=== PATIENT | female | born 1990 | race African-American/Black ===

== ENCOUNTER 2017-03-25 15:46 | Emergency (ER) | payer OTHER ==
[2017-03-25 16:00] VITALS: TEMP 97.5
[2017-03-25] MEDS ORDERED: HYOSCYAMINE SULFATE 0.125 MG TAB ONE (16:13)
[2017-03-25] MEDS ORDERED: LIDOCAINE 2% VISCOUS 15 ML UDCUP ONE (16:14)
[2017-03-25] MEDS ORDERED: MAG HYDROX/AL HYDROX/SIMETH 30 ML UDCUP ONE (16:14)
--- NOTE | 2017-03-25 16:14 | EDPHY ---
H & P Stated Complaint: n/v chills/?fever abd pain body aches Time Seen by Provider: 03/25/17 16:13 HPI/ROS: CHIEF COMPLAINT: Nausea, intractable vomiting, abdominal pain HISTORY OF PRESENT ILLNESS: The patient presents to the ED with complaints of several days of nausea, vomiting and intractable abdominal pain. The patient reports she has a history of chronic intermittent abdominal pain and vomiting. She saw a under presser in November of this year who reportedly diagnosed her with peptic ulcer disease. She was treated with antibiotics for a week and had been on a proton pump inhibitor which she stop taking. The patient does report she is a chronic daily marijuana user. She denies significant drug or cigarette use. The patient has no history of abdominal surgery. The patient complains of moderate epigastric pain. She denies additional acute complaints. REVIEW OF SYSTEMS: A comprehensive 10 point review of systems is otherwise negative aside from elements mentioned in the history of present illness. Source: Patient - Personal History LMP (Females 10-55): 1-7 Days Ago Current Tetanus/Diphtheria Vaccine: Yes - Medical/Surgical History Hx Asthma: No Hx Chronic Respiratory Disease: No Hx Diabetes: No Hx Cardiac Disease: No Hx Renal Disease: No Hx Cirrhosis: No Hx Alcoholism: No Hx HIV/AIDS: No Hx Splenectomy or Spleen Trauma: No Other PMH: ulcer/depression - Social History Smoking Status: Never smoked Alcohol Use: Occasionally Drug Use: Marijuana - Physical Exam Exam: General Appearance: Alert, mild discomfort secondary to ongoing retching Eyes: Pupils equal and round no pallor or injection ENT, Mouth: Mucous membranes moist Respiratory: There are no retractions, lungs are clear to auscultation Cardiovascular: Regular rate and rhythm Gastrointestinal: Epigastric tenderness to palpation Neurological: A&O, normal motor function, normal sensory exam, normal cranial nerves Skin: Warm and dry, no rashes Musculoskeletal: Neck is supple nontender Extremities: symmetrical, full range of motion Constitutional: Initial Vital Signs Temperature (C) 36.4 C 03/25/17 15:57 Heart Rate 84 03/25/17 15:57 Respiratory Rate 20 03/25/17 15:57 Blood Pressure 138/115 H 03/25/17 15:57 O2 Sat (%) 96 03/25/17 15:57 O2 Delivery Mode Room Air Allergies/Adverse Reactions: amoxicillin Allergy (Verified 03/25/17 15:56) Home Medications: Medication Instructions Recorded NK [No Known Home Meds] 03/25/17 Medical Decision Making ED Course/Re-evaluation: The patient presents to the ED for evaluation of an acute episode of epigastric pain which has occurred intermittently since November. The patient did have endoscopy which reportedly demonstrated peptic ulcer disease. She has not had any history of melena. She presents the ED today complaining of moderate epigastric pain and bilious vomiting. The patient had an IV established. She received a L of normal saline. She received IV Zofran and a GI cocktail. The patient does report that she has a chronic daily marijuana user and there may certainly be a component of can avoid induced hyperemesis in her presentation today. The patient did received 2.5 mg of IV Haldol and 1 mg of IV Ativan. I re-evaluated the patient several times throughout her stay in the emergency department. At 7:30 p.m. she is feeling much better. She has mild epigastric pain but no right lower quadrant tenderness. I do feel the patient can be discharged home. She will be advised to use Zofran, ranitidine and abstain from marijuana use. She has been given customary aftercare instructions and return precautions. She is given the contact number of our on-call under presser. Differential Diagnosis: Differential diagnosis considered includes peptic ulcer disease, pancreatitis, gastritis, cholecystitis, cannabis induced hyperemesis - Data Points Laboratory Results: Laboratory Results 03/25/17 16:40 03/25/17 16:40 03/25/17 03/25/17 03/25/17 16:40 16:40 16:40 WBC 10.81 10^3/uL H 10^3/uL (3.80-9.50) RBC 5.08 10^6/uL 10^6/uL (4.18-5.33) Hgb 15.1 g/dL g/dL (12.6-16.3) Hct 43.1 % % (38.0-47.0) MCV 84.8 fL fL (81.5-99.8) MCH 29.7 pg pg (27.9-34.1) MCHC 35.0 g/dL g/dL (32.4-36.7) RDW 12.7 % % (11.5-15.2) Plt Count 349 10^3/uL 10^3/uL (150-400) MPV 10.0 fL fL (8.7-11.7) Neut % (Auto) 79.4 % H % (39.3-74.2) Lymph % (Auto) 14.4 % L % (15.0-45.0) Howard % (Auto) 3.8 % L % (4.5-13.0) Eos % (Auto) 1.5 % % (0.6-7.6) Baso % (Auto) 0.5 % % (0.3-1.7) Nucleat RBC Rel Count 0.0 % % (0.0-0.2) Absolute Neuts (auto) 8.59 10^3/uL H 10^3/uL (1.70-6.50) Absolute Lymphs (auto) 1.56 10^3/uL 10^3/uL (1.00-3.00) Absolute Monos (auto) 0.41 10^3/uL 10^3/uL (0.30-0.80) Absolute Eos (auto) 0.16 10^3/uL 10^3/uL (0.03-0.40) Absolute Basos (auto) 0.05 10^3/uL 10^3/uL (0.02-0.10) Absolute Nucleated RBC 0.00 10^3/uL 10^3/uL (0-0.01) Immature Gran % 0.4 % % (0.0-1.1) Immature Gran # 0.04 10^3/uL 10^3/uL (0.00-0.10) Sodium 140 mEq/L mEq/L (134-144) Potassium 3.7 mEq/L mEq/L (3.5-5.2) Chloride 104 mEq/L mEq/L (97-110) Carbon Dioxide 16 mEq/l L mEq/l (22-31) Anion Gap 20 mEq/L H mEq/L (8-16) BUN 11 mg/dL mg/dL (7-23) Creatinine 0.8 mg/dL mg/dL (0.6-1.0) Estimated GFR > 60 Glucose 151 mg/dL H mg/dL (70-100) Calcium 10.4 mg/dL mg/dL (8.5-10.4) Total Bilirubin 0.9 mg/dL mg/dL (0.1-1.4) Conjugated Bilirubin 0.3 mg/dL mg/dL (0.0-0.5) Unconjugated Bilirubin 0.6 mg/dL mg/dL (0.0-1.1) AST 29 IU/L IU/L (14-46) ALT 28 IU/L IU/L (9-52) Alkaline Phosphatase 94 IU/L IU/L (38-126) Total Protein 8.4 g/dL H g/dL (6.3-8.2) Albumin 5.2 g/dL H g/dL (3.5-5.0) Lipase 88 IU/L IU/L (23-300) Beta HCG, Qual NEGATIVE Medications Given: Discontinued Medications Al Hydroxide/Mg Hydroxide (Maalox Susp) 30 ml PO EDNOW ONE Stop: 03/25/17 16:29 Last Admin: 03/25/17 16:29 Dose: 30 ml Haloperidol Lactate (Haldol Injection) 2.5 mg IVP EDNOW ONE Stop: 03/25/17 16:38 Last Admin: 03/25/17 16:52 Dose: 2.5 mg Sodium Chloride (Ns) 1,000 mls @ 0 mls/hr IV EDNOW ONE; Wide Open PRN Reason: Protocol Stop: 03/25/17 16:38 Last Admin: 03/25/17 16:51 Dose: 1,000 mls Lidocaine (Lidocaine 2% Viscous) 5 ml PO EDNOW ONE Stop: 03/25/17 16:28 Last Admin: 03/25/17 16:29 Dose: 5 ml Lorazepam (Ativan Injection) 1 mg IVP EDNOW ONE Stop: 03/25/17 17:16 Last Admin: 03/25/17 17:17 Dose: 1 mg Ondansetron HCl (Zofran) 4 mg IVP EDNOW ONE Stop: 03/25/17 16:38 Last Admin: 03/25/17 16:51 Dose: 4 mg Departure - Departure Disposition: Home, Routine, Self-Care Clinical Impression: Epigastric abdominal pain, Vomiting Condition: Good Instructions: Acute Nausea and Vomiting (ED) Additional Instructions: 1. Zofran as needed for nausea. 2. Begin ranitidine as prescribed. 3. Avoid spicy foods, caffeine and alcohol. 4. I recommend complete abstinence from marijuana as there may be a component of cannabis induced hyperemesis. 5. You have been given the contact information of our on-call GI specialist Referrals: Preston Chew MD [Medical Doctor] - As per Instructions
[2017-03-25] MEDS ORDERED: MBX SOLN 30 ML BOTTLE PO PRN (16:26)
[2017-03-25] MEDS ORDERED: LIDOCAINE 2% VISCOUS 15 ML UDCUP PO ONE (16:27)
[2017-03-25] MEDS ORDERED: MAG HYDROX/AL HYDROX/SIMETH 30 ML UDCUP PO ONE (16:28)
[2017-03-25] MEDS ORDERED: HALOPERIDOL LACT 5 MG/ML INJ IVP ONE (16:37)
[2017-03-25] MEDS ORDERED: NS 1,000 ML IV ONE (16:37)
[2017-03-25] MEDS ORDERED: ONDANSETRON 4 MG/2 ML VIAL IVP ONE (16:37)
[2017-03-25 16:43] LABS: % IMMATURE GRANULYOCYTES 0.4 % (0.0-1.1); ABSOLUTE IMMATURE GRANULOCYTES 0.04 10^3/uL (0.00-0.10); ADD DIFF? NO; ADD MORPH? NO; ADD SCAN? NO; ATYPICAL LYMPHOCYTE FLAG 10 (0-99); FRAGMENT RBC FLAG 0 (0-99); HEMATOCRIT 43.1 % (38.0-47.0); HEMOGLOBIN 15.1 g/dL (12.6-16.3); LEFT SHIFT FLG 0 (0-99); LIPEMIA HEMOLYSIS FLAG 90 (0-99); MEAN CELL HEMOGLOBIN 29.7 pg (27.9-34.1); MEAN CELL VOLUME 84.8 fL (81.5-99.8); PLATELET CLUMPS FLAG 0 (0-99); PLATELET COUNT 349 10^3/uL (150-400); RED BLOOD CELL COUNT 5.08 10^6/uL (4.18-5.33); RED CELL DISTRIBUTION WIDTH 12.7 % (11.5-15.2)
[2017-03-25 16:55] LABS: ALANINE AMINOTRANSFERASE 28 IU/L (9-52); ALBUMIN 5.2 g/dL (3.5-5.0); ALKALINE PHOSPHATASE 94 IU/L (38-126); ANION GAP 20 mEq/L (8-16); ASPARTATE AMINOTRANSFERASE 29 IU/L (14-46); BILIRUBIN,TOTAL 0.9 mg/dL (0.1-1.4); BILIRUBIN-CONJUGATED 0.3 mg/dL (0.0-0.5); BILIRUBIN-UNCONJUGATED 0.6 mg/dL (0.0-1.1); CALCIUM 10.4 mg/dL (8.5-10.4); CARBON DIOXIDE 16 mEq/l (22-31); CHLORIDE 104 mEq/L (97-110); CREATININE 0.8 mg/dL (0.6-1.0); GLOMERULAR FILTRATION RATE > 60; GLUCOSE 151 mg/dL (70-100); POTASSIUM 3.7 mEq/L (3.5-5.2); SODIUM 140 mEq/L (134-144); TOTAL PROTEIN 8.4 g/dL (6.3-8.2)
[2017-03-25] MEDS ORDERED: LORazepam 2 MG/ML INJ ONE (17:14)
[2017-03-25] MEDS ORDERED: LORazepam 2 MG/ML INJ IVP ONE (17:15)
[2017-03-25 19:50] VITALS: BP 114/65; PULSE 90; RESP 14; O2SAT 96
== END 2017-03-25 19:58 | disposition home or self-care (01) ==
DX: R10.13 Epigastric pain (principal); R11.10 Vomiting, unspecified; E86.9 Volume depletion, unspecified
CPT/HCPCS: 96374; J2060; J2405